=== PATIENT | male | born 1945 | race Caucasian/White ===

== ENCOUNTER → 2017-01-25 | Outpatient (CLI) | payer OTHER ==
[~2017-01-25] MED LIST: FLOMAX0.4 MG PO; HYDROCODONE-AP1 EAC6 PO; LEVOTHYROXIN0.112 M1 PO; LIPITOR10 MG PO; NAPROSYN500 MG PO; NORFLEX100 MG PO; PERCOCET 5-3251 EACH PO
== END ==
LOC: MRI 08:45
DX: M48.54XA Collapsed vertebra, not elsewhere classified, thoracic region, initial encounter for fracture (principal); M47.814 Spondylosis without myelopathy or radiculopathy, thoracic region; M54.6 Pain in thoracic spine; M48.04 Spinal stenosis, thoracic region

== ENCOUNTER → 2017-02-04 | Outpatient (CLI) | payer OTHER, BC ==
[~2017-02-04] VITALS: Ht 177.8 cm; Wt 78.0 kg
[~2017-02-04] MED LIST changes: +CALCITONIN-SAL3.7 ML NS; +TESTOSTERO200 MG/1 M IM; +VALIUM2 MG PO
--- NOTE | ~2017-02-04 | HPC ---
[facility] [address] [place] [address] PAIN MANAGEMENT CONSULTATION Name: SAMUEL VIERA Room #: REG Hue Meseret#: [id number] Admission: 02/04/17 Attend Phys: Kayden Shelton MD Discharge: Date of : 49 Report #: [id number] THIS REPORT FOR: //name// CC: Kayden Caldera MD DATE OF SERVICE: 02/04/2017 CHIEF COMPLAINT: Pain in the chest wall after yanking on a trash bag that got stuck in the dumpster. HISTORY OF PRESENT ILLNESS: The patient is a 71-year-old gentleman who has been referred to the pain clinic for evaluation. The patient states that he noticed some pain and discomfort after trying to remove a trash bag from a . He felt that they bag was stuck. He gave hard tub. At that time, he felt pain and discomfort in his mid back, left and right low back area and has had pain and discomfort in the anterior portion of his chest, right below his pectoralis muscles. He describes it as constant. It varies in intensity. It is difficult for him to go from a sitting to a standing position. Pain is made worse if he stands in one place for too long. He also notes that he has some pain and discomfort when he rotates and moves his back in certain position. He describes his discomfort as continuous, steady, burning, shooting, throbbing and rates it as a 9/10 when it is present. He has not had pain like this prior to that event. He went to his primary doctor and had an MRI. He said he has a compression fracture, this is at T7. ALLERGIES: MORPHINE. MEDICATIONS: Calcitonin spray, testosterone intramuscular monthly, Naprosyn 500 mg b.i.d., oxycodone 5/325 q.4-6 hours p.r.n. pain, Lipitor 10 mg, levothyroxine 0.112 mg, Flomax 0.4 mg, and Norflex 100 mg b.i.d. HABITS: He has smoked cigarettes in the past, he is not current to smoking. Denies use of alcoholic beverages at this time. PAST MEDICAL HISTORY: Thyroid disease, thyroid cancer, and hyperlipidemia. PAST SURGICAL HISTORY: Hernia surgery in 1965, hernia surgery in 2008, and thyroid surgery in 1968. SOCIAL HISTORY: He is retired, has not worked in the last 5 years. REVIEW OF SYSTEMS: Fourteen-point review of systems questionnaire in the chart indicates generally good health, constipation, difficulty urinating at night, thyroid disease, bruised easily, otherwise unremarkable. [address] [address] PAIN MANAGEMENT CONSULTATION Name: SAMUEL VIERA [facility]: [id number] Admission: 02/04/17 Attend Phys: Kayden Shelton MD Discharge: Date of : 49 Report #: [id number] LABORATORY DATA: An MRI of the thoracic spine dated 01/25/2017, reveals compression fracture identified in the T7 vertebral body. It was nearly a complete compression of the T7 vertebral body. There is mild central compression at the T11 level, which were chronic, retropulsed fragment was present at the inferior margin of the T7 vertebral body, which result in a mild canal narrowing and mild central spinal stenosis, given the degree of compression and the lack of active marrow edema in the fracture site, the patient would not be a good candidate for vertebroplasty or osteophytes. PHYSICAL EXAMINATION: Blood pressure 144/85, pulse 52, respiratory rate 16, room air saturation 100, height 5 feet 10 inches, weight 78 kg, and BMI 24.7. The patient has a kyphotic upper thoracic area. He complains of pain and discomfort, which radiates under his breast bone with certain movements. He has had some pain and discomfort in the lower portion of his back at approximately the L5 area. He has not had any pain radiating down into his legs or noted any weakness as a result of this. He does note some back spasms, which are quite problematic and rates them as a 9/10. He has difficulty going from a lying to a sitting position or standing position without worsening of his pain and discomfort. IMPRESSION: 1. T7 compression fracture with thoracic radiculopathy. 2. Hyperlipidemia. 3. Hypothyroidism. RECOMMENDATIONS: We discussed treatment options with the patient. His MRI was reviewed. The pathophysiology of this problem was discussed with him. A model was used to indicate the area of probable pathology. The patient states that he understands. Risks and benefits of a thoracic epidural steroid injection were discussed. Possible complications were reviewed. The patient elects to proceed. PROCEDURE NOTE: The patient was placed in the prone position. Fluoroscopy was used to identify T7 area. This area had been sterilely prepped with Betadine and infiltrated with 0.25% bupivacaine. Total of 80 mg Depo-Medrol, 40 mg triamcinolone were injected after the area had been sterilely prepped with Betadine and infiltrated with 0.25% bupivacaine and identified as T7 using fluoroscopy. The patient tolerated the procedure well. There were no complications. His pain decreased to 0 at the time of discharge. He will follow up in couple of weeks. We would like to thank you for letting us participate in his care. We hope he continues to improve. By: [id number] MD tracie Zelaya
[2017-02-04 10:12] VITALS: BP 144/85
== END ==
LOC: PAIN 07:14
DX: M54.14 Radiculopathy, thoracic region (principal); M48.54XA Collapsed vertebra, not elsewhere classified, thoracic region, initial encounter for fracture; E78.5 Hyperlipidemia, unspecified; E03.9 Hypothyroidism, unspecified

== ENCOUNTER 2017-02-12 11:13 | Emergency (ER) | payer OTHER, BC ==
[~2017-02-12] VITALS: Ht 177.8 cm; Wt 79.4 kg
[2017-02-12] MEDS ORDERED: NORFLEX100 MG PO ×2 (13:29→13:33)
== END 2017-02-12 14:03 | disposition home or self-care (01) ==
LOC: ER 11:13
DX: M48.54XA Collapsed vertebra, not elsewhere classified, thoracic region, initial encounter for fracture (principal); G89.29 Other chronic pain; M54.6 Pain in thoracic spine; Z98.890 Other specified postprocedural states; E89.0 Postprocedural hypothyroidism; Z88.5 Allergy status to narcotic agent; F17.210 Nicotine dependence, cigarettes, uncomplicated

== ENCOUNTER → 2017-02-18 | Outpatient (CLI) | payer OTHER, BC ==
[~2017-02-18] VITALS: Ht 177.8 cm; Wt 77.2 kg
[~2017-02-18] MED LIST changes: +ENDOCET 5-3251 EACH PO; +MOBIC7.5 MG PO; +OXAYDO7.5 MG PO
--- NOTE | ~2017-02-18 | HPC ---
[facility] [place] [address] PAIN MANAGEMENT CONSULTATION Name: SAMUEL VIERA Room #: REG Hue Carl#: [id number] Admission: 02/18/17 Attend Phys: Kayden Shelton MD Discharge: Date of : 49 Report #: [id number] THIS REPORT FOR: //name// CC: Kayden Caldera MD DATE OF SERVICE: 02/18/2017 CHIEF COMPLAINT: Continued back pain after pulling out the trash bag and resultant compression fracture. FOLLOWUP HISTORY: The patient is a 71-year-old gentleman who has been seen in the pain clinic because of compression fracture involving T7 area. As you recall, the patient was pulling a trash bag out of a trash receptacle. At that time, he felt a and discomfort in his back with pain radiating around the chest area. MRI showed a compression fracture at T7. It did not appear that it would be amendable to kyphoplasty treatment. He underwent an epidural steroid injection at the last visit. He noted some pain improvement for a few hours after the injection and a bit of improvement since then. He continues to have pain, which is quite problematic. He has seen his physician who has placed a 25 mcg fentanyl patch on yesterday. He rates his pain as an 8/10 with certain movements. He finds that the oxycodone 5/325 tablets can be helpful. He had taken up to about 6 or 7 tablets of this medication per day with Tylenol. He continues to have discomfort, which he describes as burning, shooting, throbbing, and can rise to the level of 8/10. Certain movements exacerbate this discomfort. PHYSICAL EXAMINATION: Blood pressure 143/87, pulse 65, respiratory rate 14, room air saturation is 96%. Height 5 feet 10 inches, weight 77 kg, and BMI is 24. The patient walks slow and has an extremely kyphotic upper body. IMPRESSION: 1. T7 compression fracture with thoracic radiculopathy. 2. Thyroid disease. 3. Hyperlipidemia. RECOMMENDATIONS: We discussed treatment options with the patient. At this juncture, he is receiving a mcc pain medication and fentanyl. Since it has been started only yesterday, we will note its effects over the next few days. We will increase his oxycodone from 5-7.5 mg tablets. We have explained the need to decrease the amount of Tylenol, which he is receiving. He will return to the pain clinic and undergo another thoracic epidural steroid injection in 2 weeks. He has received benefit from the epidural injection. We would like to thank you for letting us participate in his care. We hope he continues to improve. He will try Mobic 7.5 mg 1 p.o. daily. He will be [address] [address] PAIN MANAGEMENT CONSULTATION Name: SAMUEL VIERA Room #: REG [facility]#: [id number] Admission: 02/18/17 Attend Phys: Kayden Shelton MD Discharge: Date of : 49 Report #: [id number] of stomach concerns. If he notes any problems with that, he will stop taking the Mobic medication. We would like to thank you for letting us participate in his care. We hope he continues to improve. By: [id number] Kayden Shelton MD /nt
[2017-02-18 10:03] VITALS: BP 143/87
== END ==
LOC: PAIN 07:17
DX: S22.060A Wedge compression fracture of T7-T8 vertebra, initial encounter for closed fracture (principal); M54.14 Radiculopathy, thoracic region; E07.89 Other specified disorders of thyroid; E78.5 Hyperlipidemia, unspecified; X58.XXXA Exposure to other specified factors, initial encounter; Y93.89 Activity, other specified; Y92.89 Other specified places as the place of occurrence of the external cause; Y99.8 Other external cause status

== ENCOUNTER → 2017-03-11 | Outpatient (CLI) | payer OTHER, BC ==
[~2017-03-11] VITALS: Ht 177.8 cm; Wt 75.3 kg
[~2017-03-11] MED LIST changes: +ROXICODONE5 MG PO
--- NOTE | ~2017-03-11 | HPC ---
[facility] [address] [place] [address] PAIN MANAGEMENT CONSULTATION Name: SAMUEL VIERA Room #: REG STIVEN Carl#: [id number] Admission: 03/11/17 Attend Phys: Kayden Shelton MD Discharge: Date of : 49 Report #: [id number] THIS REPORT FOR: //name// CC: Naya Machado Aldo DATE OF SERVICE: 03/11/2017 FOLLOWUP COMPLAINT: Medications are working pretty good. FOLLOWUP HISTORY: The patient is a 71-year-old female who has been followed in the pain clinic. DICTATION ENDS HERE By: [id number] Kayden Shelton MD /nt
--- NOTE | ~2017-03-11 | HPC ---
[facility] [place] [address] PAIN MANAGEMENT CONSULTATION Name: SAMUEL VIERA [facility] #: [facility] [id number] Admission: 03/11/17 Attend Phys: Kayden Shelton MD Discharge: Date of : 49 Report #: [id number] THIS REPORT FOR: //name// CC: Kayden Linares Aldo DATE OF SERVICE: 03/11/2017 FOLLOWUP COMPLAINT: It is somewhat better, but still rare. FOLLOWUP HISTORY: The patient is a 71-year-old gentleman who has been seen in the pain clinic because of thoracic radiculopathy, status post T7 compression fracture. The patient was removing an item from a trash can. While pulling out the trash bag he noted pain and discomfort in the upper chest area. MRI revealed a compression fracture at T7. This fracture is not a surgical vertebrae. The compression was significant. He has undergone a thoracic epidural steroid injection, noted some improvement in his pain. He continues to have some pain in the lower thoracic areas. He is limited in his ability to engage in activities of daily living. It is constantly on his mind and limiting. He finds his fentanyl patch continues to be helpful. He continues to wear it and he used the oxycodone to help control this pain. He rates his pain as 7 today. PHYSICAL EXAMINATION: Blood pressure 125/79, pulse 63, respiratory rate 18, room air saturations 100. The patient has pain and discomfort in the T7 distribution with pain radiating along the left and right T7 distribution. The patient is having less shooting/lancinating pain at this juncture. IMPRESSION: 1. T7 compression fracture with thoracic radiculopathy -- lancinating pain is improved, but continues to have pain in the T7 distribution bilaterally. 2. Thyroid disease. 3. Hyperlipidemia. RECOMMENDATIONS: We discussed treatment options with the patient and his daughter. Risks and benefits of the thoracic epidural steroid injection were discussed. Possible complications, which could include infection, increased muscle soreness, headaches, damage to the anterior spinal artery with weakness and paralysis were discussed. The patient elects to proceed. PROCEDURE NOTE: The patient was placed in the prone position. Fluoroscopy was used to identify the T7-T8 interspace. This area had been sterilely prepped with Betadine and infiltrated with 0.25% bupivacaine. A total of 80 mg Depo-Medrol, 40 mg triamcinolone and 2 mL of 0.25% bupivacaine was injected. The patient tolerated the procedure well. There were no complications. [place] [address] PAIN MANAGEMENT CONSULTATION Name: MAXIMILIANOSAMUEL Room #: REG Hue Carl#: [id number] Admission: 03/11/17 Attend Phys: Kayden Shelton MD Discharge: Date of : 49 Report #: [id number] follow up in the future as needed. He will continue with his current medical regimen of fentanyl and oxycodone to help control the pain. We would like to thank you for letting us participate in his care. Hopefully, he continues to improve. By: [id number] Kayden Shelton MD /nt
[2017-03-11 10:44] VITALS: BP 125/79
== END | disposition home or self-care (01) ==
LOC: PAIN 03-04 06:51
DX: M54.14 Radiculopathy, thoracic region (principal); S22.060A Wedge compression fracture of T7-T8 vertebra, initial encounter for closed fracture; E07.9 Disorder of thyroid, unspecified; E78.5 Hyperlipidemia, unspecified; X50.9XXA Other and unspecified overexertion or strenuous movements or postures, initial encounter; Y93.89 Activity, other specified; Y92.89 Other specified places as the place of occurrence of the external cause; Y99.8 Other external cause status

== ENCOUNTER → 2017-04-27 | Outpatient (CLI) | payer OTHER, BC ==
[~2017-04-27] VITALS: Ht 177.8 cm; Wt 73.3 kg
[~2017-04-27] MED LIST changes: +TRAZODONE HCL50 MG PO
[2017-04-27 09:17] VITALS: BP 143/70
== END ==
LOC: PAIN 07:04
DX: M54.14 Radiculopathy, thoracic region (principal); Z87.81 Personal history of (healed) traumatic fracture